=== PATIENT | male | born 1950 | race Two or more races ===

== ENCOUNTER 2020-02-29 14:38 | Emergency (ER) | payer MEDICARE ==
[~2020-02-29] VITALS: Ht 160 cm; Wt 102.5 kg
--- NOTE | 2020-02-29 14:38 | NUR ---
BIB C/O ABSCESS ON THE R [place] AREA FOR 1 WEEK, TO ER BED 9, HOOKED TO MONITOR, CHANGED TO HOSP GOWN, WARM BLANKET PROVIDED, PATIENT AAO x 4, BREATHING EVEN AND UNLABORED. AWAITING MD ADRIAN.
--- NOTE | 2020-02-29 14:46 | NUR ---
DR SALGADO AT BEDSIDE
[2020-02-29 15:13] LABS: BASOPHILS # (AUTO) 0.2 /CMM (0.0-0.2); BASOPHILS % (AUTO) 0.9 % (0.0-2.0); EOSINOPHILS % (AUTO) 0.6 % (0.0-6.0); HEMATOCRIT 37 % (39-51); HEMOGLOBIN 12.3 g/dL (13.5-17.5); LYMPHOCYTES # (AUTO) 1.5 /CMM (0.8-4.8); LYMPHOCYTES % (AUTO) 7.2 % (20.0-44.0); MEAN CORPUSCULAR HGB CONC 33 g/dl (31.0-36.0); MEAN CORPUSCULAR VOLUME 88 fL (80-96); MONOCYTES % (AUTO) 9.5 % (2.0-12.0); NEUTROPHILS # (AUTO) 17.6 /CMM (1.8-8.9); NEUTROPHILS % (AUTO) 81.8 % (43.0-81.0); PLATELET COUNT (AUTO) 458 /CMM (150-450); RED BLOOD CELL COUNT(AUTO) 4.26 MIL/uL (4.5-6.0); WHITE BLOOD COUNT (AUTO) 21.5 K/uL (4.3-11.0)
[2020-02-29] MEDS ORDERED: MORPHINE SULFATE INJ 4 MG/ML DISP.SYRIN ONE (15:13)
[2020-02-29] MEDS: MORPHINE SULFATE INJ 2 MG/ML DISP.SYRIN IV ONE (15:16)
[2020-02-29 15:18] LABS: CALCIUM, SERUM 8.7 mg/dL (8.5-10.1); CARBON DIOXIDE 26 mmol/L (21-32); CHLORIDE 101 mmol/L (98-107); CREATININE 1.3 mg/dL (0.6-1.3); GLUCOSE 179 mg/dL (74-106); SODIUM SERUM 137 mmol/L (136-145); UREA NITROGEN, BLOOD 32 mg/dL (7-18)
[2020-02-29 15:24] LABS: ALANINE AMINOTRANSFERASE 50 U/L (12-78); ALBUMIN 2.8 g/dL (3.4-5.0); ALKALINE PHOSPHATASE 53 U/L (46-116); ASPARTATE AMINOTRANSFERASE 48 U/L (15-37); BILIRUBIN,DIRECT 0.1 mg/dL (0.0-0.2); BILIRUBIN,TOTAL 0.3 mg/dL (0.2-1.0); TOTAL PROTEIN, SERUM 7.2 g/dL (6.4-8.2)
[2020-02-29] MEDS ORDERED: CT SWABBABLE VALVE TRANS SET 1 EA INFUS.SET MC ONE (15:42)
[2020-02-29] MEDS ORDERED: IV NS 0.9% 250 ML IV ONE (15:42)
[2020-02-29] MEDS ORDERED: IOHEXOL-300 100 ML VIAL IV ONE (15:42)
[2020-02-29 15:56] LABS: BAND % (MANUAL) 3 % (0.0-5.0); LYMPHOCYTES % (MANUAL) 11 % (16-48); MONOCYTES % (MANUAL) 8 % (0-11.0); NEUTROPHILS % (MANUAL) 78 (42-76)
--- NOTE | 2020-02-29 15:58 | NUR ---
BACK FROM CT SCAN
[2020-02-29] MEDS ORDERED: METRONIDAZOLE 500MG/ NS 100ML 100 ML IV ONE (16:28)
[2020-02-29] MEDS: IV NS 0.9% 1,000 ML BAG IV ONE (16:30)
[2020-02-29] MEDS: FLAGYL/NS RTU 500 MG/100 ML PIGGYBACK IV ONE (16:30)
[2020-02-29] MEDS: IV NS 0.9% 1,000 ML IV ONE (16:34)
[2020-02-29] MEDS ORDERED: LOSA100T31 PO (16:45)
[2020-02-29] MEDS ORDERED: METO-358 PO (16:45)
[2020-02-29] MEDS ORDERED: ASPI-869 PO (16:45)
[2020-02-29] MEDS ORDERED: INSU100I19 SQ (16:45)
[2020-02-29] MEDS ORDERED: ISOS30TA6 PO (16:45)
[2020-02-29] MEDS ORDERED: DULA1.5P SQ (16:45)
[2020-02-29] MEDS ORDERED: INSU3INS5 SQ (16:45)
[2020-02-29] MEDS ORDERED: FENO160T PO (16:45)
[2020-02-29] MEDS ORDERED: AMLO5TAB9 PO (16:45)
[2020-02-29] MEDS ORDERED: FURO20TA4 PO (16:45)
[2020-02-29] MEDS ORDERED: EMPA25TA PO (16:45)
[2020-02-29] MEDS ORDERED: ATOR10TA PO (16:45)
--- NOTE | 2020-02-29 16:45 | NUR ---
SPOKE TO ROSALIND OF [facility] [phone]
[2020-02-29] MEDS ORDERED: LINA1TAB7 PO (16:55)
[2020-02-29] MEDS ORDERED: BLOO-668 IN (16:55)
[2020-02-29] MEDS: CIPROFLOXACIN IV RTU 400 MG in PREMIX 1 EA IV SCH (17:30)
--- NOTE | 2020-02-29 18:42 | NUR ---
DR SALGADO SPOKE TO FROM [facility]. PATIENT WILL BE TRANSFERRED TO [facility]. AWAITING CALLBACK FROM [employer] [employer] [facility] FOR TRANSFER INFORMATION.
--- NOTE | 2020-02-29 19:12 | NUR ---
REPORT GIVEN TO KELY ROBERSON FOR HEMAL
[2020-02-29 19:28] VITALS: BP 128/68
--- NOTE | 2020-02-29 19:29 | NUR ---
REPORT RECEIVED FROM KAROL SOTELO FOR HEMAL
--- NOTE | 2020-02-29 21:04 | NUR ---
Patty senior in [facility] - 02/29/20 at 2119 by BLAYNE ISHAN [employer] TECHNICIAN #[id number] BA #[phone]
--- NOTE | 2020-02-29 21:07 | NUR ---
SPOKE WITH ROSALIND ([employer]), 60 MIN ETA FOR [employer]IST VIA [facility]. NUMBER FOR REPORT: [facility] [phone]. NOTE: PT IS TO GO THRU ER FIRST FOR COVID SCREENING.
--- NOTE | 2020-02-29 21:39 | NUR ---
ATTEMPTED TO CALL [facility] FOR REPORT, NO ANSWER
--- NOTE | 2020-02-29 21:44 | NUR ---
REPORT GIVEN TO KAROL [facility]AL [facility] ACCEPTING DR: RAISA
--- NOTE | 2020-02-29 22:54 | NUR ---
REPORT GIVEN TO EMS. PT STABLE FOR TRANSFER
== END 2020-02-29 22:56 | disposition short-term general hospital (02) ==
LOC: ER 14:52
DX: K61.1 Rectal abscess (principal); I10 Essential (primary) hypertension; E11.9 Type 2 diabetes mellitus without complications; Z79.84 Long term (current) use of oral hypoglycemic drugs; Z79.899 Other long term (current) drug therapy; Z79.4 Long term (current) use of insulin; Z79.82 Long term (current) use of aspirin
CPT/HCPCS: 36415; 72193; 80048; 80076; 83605 ×2; 85025; 96365; 96367; 96375; 99285; A4216; J0744; J2270; J7030; J7050; Q9967

== ENCOUNTER 2023-08-06 16:37 | Emergency (ER) | payer OTHER ==
[~2023-08-06] VITALS: Ht 157.5 cm; Wt 109.3 kg
[~2023-08-06 16:37] MED LIST: AMLO-212 PO; ASPI-869 PO; ATOR10TA PO; BLOO-668 IN; DULA1.5P SQ; EMPA25TA PO; FENO160T PO; FURO20TA4 PO; INSU100I19 SQ; INSU3INS5 SQ; ISOS30TA86 PO; LINA1TAB7 PO; LOSA100T31 PO; METO-358 PO
[2023-08-06] MEDS ORDERED: FENTANYL PF 100MCG/2ML AMPUL ONE (17:57)
[2023-08-06] MEDS ORDERED: FENTANYL PF 100MCG/2ML AMPUL IV ONE (18:00)
[2023-08-06] MEDS ORDERED: KETO10TA2 PO ×2 (18:55→19:17)
[2023-08-06] MEDS ORDERED: HYDR-3980 PO ×2 (18:55→19:17)
[2023-08-06 19:18] VITALS: BP 116/75; TEMP 98; O2SAT 100
[2023-08-06] MEDS ORDERED: TRAM50TA2 PO (20:32)
== END 2023-08-06 19:18 | disposition home or self-care (01) ==
LOC: ER 17:21
DX: S42.211A Unspecified displaced fracture of surgical neck of right humerus, initial encounter for closed fracture (principal); I10 Essential (primary) hypertension; E11.9 Type 2 diabetes mellitus without complications; Z79.899 Other long term (current) drug therapy; Z98.890 Other specified postprocedural states; Z79.82 Long term (current) use of aspirin; W01.0XXA Fall on same level from slipping, tripping and stumbling without subsequent striking against object, initial encounter; Y93.89 Activity, other specified; Y92.89 Other specified places as the place of occurrence of the external cause; Y99.8 Other external cause status
CPT/HCPCS: 29105; 73030; 96374; 99283; J3010

== ENCOUNTER 2023-09-05 02:52 | Emergency (ER) | payer OTHER ==
[~2023-09-05] VITALS: Ht 157.5 cm; Wt 108.9 kg
[~2023-09-05 02:52] MED LIST changes: +KETO10TA2 PO; +TRAM50TA2 PO
[2023-09-05] MEDS ORDERED: FUROSEMIDE 40 MG/4 ML VIAL IV ONE (03:00)
[2023-09-05] MEDS ORDERED: FUROSEMIDE 40 MG/4 ML VIAL ONE (03:04)
[2023-09-05] MEDS ORDERED: KETOROLAC TROMETHAMINE 15 MG/ML VIAL ONE (03:15)
[2023-09-05] MEDS ORDERED: LIDOCAINE 2% JEL UROJET 10 ML MM ONE (03:21)
[2023-09-05] MEDS ORDERED: KETOROLAC TROMETHAMINE 15 MG/ML VIAL IV ONE (03:30)
[2023-09-05 04:17] LABS: BASOPHILS # (AUTO) 0.1 K/uL (0.0-0.2); BASOPHILS % (AUTO) 0.3 % (0.0-2.0); EOSINOPHILS # (AUTO) 0.3 K/uL (0.0-0.7); EOSINOPHILS % (AUTO) 1.4 % (0.0-6.0); HEMATOCRIT 29 % (39-51); HEMOGLOBIN 9.6 g/dL (13.5-17.5); LYMPHOCYTES # (AUTO) 1.2 K/uL (0.8-4.8); LYMPHOCYTES % (AUTO) 5.9 % (20.0-44.0); MEAN CORPUSCULAR HEMOGLOBIN 28 PG (26.0-33.0); MEAN CORPUSCULAR HGB CONC 33 g/dl (31.0-36.0); MEAN CORPUSCULAR VOLUME 87 fL (80-96); MONOCYTES # (AUTO) 1.5 K/uL (0.1-1.30); MONOCYTES % (AUTO) 7.3 % (2.0-12.0); NEUTROPHILS # (AUTO) 17.9 K/uL (1.8-8.9); NEUTROPHILS % (AUTO) 85.1 % (43.0-81.0); PLATELET COUNT (AUTO) 521 K/uL (150-450); RED BLOOD CELL COUNT(AUTO) 3.39 MIL/uL (4.5-6.0); RED CELL DISTRIBUTION WIDTH 15.8 % (11.5-15.0); WHITE BLOOD COUNT (AUTO) 21.1 K/uL (4.3-11.0)
[2023-09-05 04:29] LABS: CALCIUM, SERUM 8.8 mg/dL (8.5-10.1); CARBON DIOXIDE 25 mmol/L (21-32); CHLORIDE 98 mmol/L (98-107); CREATININE 1.1 mg/dL (0.6-1.3); GLUCOSE 96 mg/dL (74-106); POTASSIUM 4.5 mmol/L (3.5-5.1); SODIUM SERUM 133 mmol/L (136-145); UREA NITROGEN, BLOOD 35 mg/dL (7-18)
[2023-09-05 04:30] LABS: INR 1.01 (0.91-1.10); PARTIAL THROMBOPLASTIN TIME 30.4 SEC (24.3-34.3); PROTHROMBIN TIME 10.7 SECS (9.2-11.1)
[2023-09-05 04:44] LABS: ALANINE AMINOTRANSFERASE 76 U/L (12-78); ALBUMIN 2.2 g/dL (3.4-5.0); ALKALINE PHOSPHATASE 96 U/L (46-116); ASPARTATE AMINOTRANSFERASE 124 U/L (15-37); BILIRUBIN,DIRECT 0.1 mg/dL (0.0-0.2); BILIRUBIN,TOTAL 0.4 mg/dL (0.2-1.0); NT-PRO BNP 4197 pg/mL (0-125); TOTAL PROTEIN, SERUM 7.6 g/dL (6.4-8.2)
[2023-09-05] MEDS ORDERED: ASPIRIN 325 MG TABLET PO ONE (06:00)
[2023-09-05] MEDS ORDERED: ASPIRIN 325 MG TABLET ONE (06:00)
[2023-09-05] MEDS ORDERED: CEFEPIME 1 GM in IV D5W 50 ML IV ONE (07:00)
[2023-09-05] MEDS ORDERED: VANCOMYCIN 1 GM in IV D5W 250 ML IV ONE (07:00)
[2023-09-05 07:22] LABS: LACTIC ACID 2.2 mmol/L (0.4-2.0)
[2023-09-05] MEDS ORDERED: CLINDAMYCIN 900 MG in IV D5W 100 ML IV ONE (07:30)
[2023-09-05] MEDS ORDERED: TAMS-12 PO (07:50)
[2023-09-05] MEDS ORDERED: METF-442 PO (07:50)
[2023-09-05] MEDS ORDERED: EMPA25TA PO (07:50)
[2023-09-05] MEDS ORDERED: ASPI-1420 PO (07:50)
[2023-09-05] MEDS ORDERED: SEMA1PEN SQ (07:50)
[2023-09-05] MEDS ORDERED: ERGO500093 PO (07:50)
[2023-09-05] MEDS ORDERED: RANO500T3 PO (07:50)
[2023-09-05] MEDS ORDERED: ALBU8.5H8 IH (07:50)
[2023-09-05 09:20] VITALS: BP 132/74; TEMP 98; O2SAT 97
[2023-09-05] MEDS ORDERED: CLINDAMYCIN 900 MG/6 ML VIAL ONE (10:52)
== END 2023-09-05 11:36 ==
LOC: ER 02:59
DX: I21.4 Non-ST elevation (NSTEMI) myocardial infarction (principal); I11.0 Hypertensive heart disease with heart failure; I50.9 Heart failure, unspecified; E11.9 Type 2 diabetes mellitus without complications; Z20.822 Contact with and (suspected) exposure to COVID-19; Z79.899 Other long term (current) drug therapy; Z79.82 Long term (current) use of aspirin
CPT/HCPCS: 99291; 74176; 93970; 96365; 96367; 96375; 87426; 93005; 71045; 76870; 85025; 80048; 87040 ×2; 87086; 83605 ×2; 80076; 85378; 36415; 84484; 85730; 83880; J3490 ×3; J1940; J3370; J7060 ×2; A4223; J0692; J1885; C9803